=== PATIENT | male | born 1945 | race Caucasian/White ===

== ENCOUNTER 2021-01-16 16:56 | Outpatient (CLI) | payer MEDICARE, OTHER | END 2021-01-16 16:57 | disposition home or self-care (01) | LOC: COV 16:56 | PROVIDERS: ATTEND Dermatology MOHS-Micrographic Surgery | DX: Z01.812 Encounter for preprocedural laboratory examination (principal); Z20.822 Contact with and (suspected) exposure to COVID-19 ==

== ENCOUNTER 2024-05-31 12:18 | Inpatient (IN) ==
--- NOTE | 2024-05-31 12:27 | ED Physician Documentation ---
PD HPI FOCAL NEURO Stated complaint Stated Complaint: CODE STROKE Chief complaint Chief Complaint: Neuro Additional information Additional information: 79-year-old gentleman with history of hypertension. No history of heart problems or stroke presents with left-sided weakness starting overnight. He thinks it probably was first noted about 3 AM when he went to the bathroom. He is having difficulty walking due to left leg weakness. He is not on any anticoagulants. He denies headache or pain. Meds/Allgy Home Medications Ambulatory Orders Medication Instructions Recorded Confirmed dextroamphetamine-amphetamine 10 10 mg PO BID 11/04/12 04/14/24 mg tablet (Adderall) dextroamphetamine-amphetamine ER 30 mg PO BID PRN ADHD 11/04/12 04/14/24 25 mg 24hr capsule,extend release (Adderall XR) ascorbate calcium (vitamin C) 500 500 mg PO DAILY 11/05/12 04/14/24 mg tablet multivitamin 1 ea PO DAILY 11/05/12 04/14/24 psyllium husk (with sugar) 3.4 1 ea PO DAILY PRN constipation 11/05/12 04/14/24 gram oral powder packet (Metamucil (with sugar)) amlodipine 5 mg tablet (Norvasc) 5 mg PO DAILY 04/14/24 04/15/24 furosemide 20 mg tablet (Lasix) 20 mg PO DAILY 04/14/24 04/14/24 salome root extract 15 mg chewable mg PO DAILY 04/14/24 tablet (Advanced Herbals Salome) metoprolol succinate 25 mg capsule 25 mg PO HS 04/14/24 04/14/24 sprinkle, ext. release 24 hr Allergies Allergies Allergy/AdvReac Type Severity Reaction Status Date / Time penicillin G Allergy Severe Hives Verified 04/14/24 13:15 [facility] Medical History Medical History (Updated 05/31/24 @ 13:15 by Bonifacio Pedraza MD) HTN (hypertension) Basal cell carcinoma (BCC) in situ of skin Prostate CA Social History Social History (Updated 04/14/24 @ 13:17 by Eileen Velez RN) Smoking Status: Never smoker Second hand tobacco smoke exposure: No Do you dip or chew tobacco?: No Do you vape?: No Living arrangement: At home Marital Status: Living Condition: With spouse/s.o. Support Person: Yes Relationship: Spouse Physical Activity: Walking Level: Independent Do you feel safe in your home environment?: Yes Suffered physical, verbal, emotional, or financial abuse?: No History of Abuse: No Frequency: Daily Number of Amount/day: 1 Substance Use: denies use Exam Constitutional normal general appearance and no apparent distress Eyes PERRL and EOMs intact bilaterally Cardiovascular normal heart rate noted and regular rhythm noted Gastrointestinal abdomen normal to inspection, abdomen soft to palpation and nontender to palpation Neurology GCS 15 Results Vitals Vitals: Vital Signs - 24 hr 05/31/24 12:25 Temperature 36.9 C Temperature Source Temporal Artery Scan Pulse Rate 73 Respiratory Rate 18 Blood Pressure 123/81 O2 Saturation 94 O2 Source Room air Pain Intensity 0 Oxygen O2 Source Room air Labs Labs: Laboratory Tests 05/31/24 12:30 WBC 5.3 RBC 4.63 L Hgb 13.9 L Hct 42.6 MCV 92.0 MCH 30.0 MCHC 32.6 RDW 13.3 Plt Count 157 MPV 11.1 Neut # (Auto) 3.7 Lymph # (Auto) 0.7 L [place] # (Auto) 0.8 Eos # (Auto) 0.0 Baso # (Auto) 0.0 Absolute Nucleated RBC 0.00 Nucleated RBC % 0.0 PT 13.4 H INR 1.2 Sodium 135 Potassium 4.1 Chloride 102 Carbon Dioxide 27 Anion Gap 6.0 BUN 16 Creatinine 0.9 Estimated GFR (MDRD) 81 L Glucose 112 H Calcium 9.0 Total Bilirubin 0.4 AST 15 ALT 14 Alkaline Phosphatase 58 Total Protein 6.5 Albumin 3.9 Globulin 2.6 Albumin/Globulin Ratio 1.5 Lipase 24 Rads (name of study) CT head of the head and CT angiography of the head were negative with the exception of significant atherosclerotic disease of the left MCA. Also a 3.: Relevant Findings:: Final report received and EMP independent interpretation of test Interpretation: CT head of the head and CT angiography of the head were negative with the exception of significant atherosclerotic disease of the left MCA. Also a 3.2 cm left thyroid nodule. PD Medical Decision Making ED course ED course: 79-year-old gentleman presents with an acute stroke syndrome with left-sided symptomatology. CT imaging of the brain was negative except for a thyroid nodule. MRI pending on admission. After CT I ordered aspirin and Plavix and presented the case to our hospitalist service for admission at 1:15 PM. The patient and family are counseled as to the diagnosis and need for admission. This document was made in part using voice recognition software, while efforts are made to proofread this document, sound alike an grammatical errors may occur. Discharge Plan Discharge Patient Disposition: ED Place in Observation Condition: Stable Clinical Impression: Thyroid nodule Cerebrovascular accident (CVA) Qualifiers: CVA mechanism: unspecified Qualified Code(s): I63.9 - Cerebral infarction, unspecified Prescriptions: No Action dextroamphetamine-amphetamine [Adderall] 10 MG tablet 10 mg PO BID dextroamphetamine-amphetamine [Adderall XR] 25 MG capsule,extended release 24hr 30 mg PO BID PRN (Reason: ADHD) ascorbate calcium (vitamin C) 500 MG tablet 500 mg PO DAILY multivitamin 1 EACH capsule 1 ea PO DAILY Metamucil (with sugar) 1 EACH powder in packet 1 ea PO DAILY PRN (Reason: constipation) furosemide [Lasix] 20 mg tablet 20 mg PO DAILY metoprolol succinate 25 mg capsule,sprinkle,ER 24hr 25 mg PO HS amlodipine [Norvasc] 5 mg tablet 5 mg PO DAILY Advanced Herbals Salome 15 mg tablet,chewable PO DAILY Print Language: Upper Sorbian Stand Alone Forms: PCP List NIHSS Level of Consciousness Level of consciousness: (0) Alert, Keenly responsive LOC Questions: (0) Answers both Q's correct LOC Commands: (0) Performs both correctly Gaze Best Gaze: (0) Normal Visual Visual: (0) No loss Facial Palsy Facial Palsy: (0) Normal, symmetrical movement Motor Arms (both separate) Motor Arm (right): (0) No drift Motor Arm (left): (1) Drift Motor Legs (both separate) Motor Leg (right): (0) No drift Motor Leg (left): (1) Drift Limb Ataxia Limb Ataxia: (0) Absent Sensory Sensory: (1) Dsiw-yj-kqrcfuzt loss Best Language Best Language: (0) No aphasia Dysarthria Dysarthria: (0) Normal Extinction and Inattention (formally neg Extinction and inattention: (0) No abnormality Total Score/Results Total Score/Result: 3
[2024-05-31 12:35] LABS: BASOPHILS % (AUTO) 0.8 %; EOSINOPHILS % (AUTO) 0.6 %; HCT - HEMATOCRIT 42.6 % (42.0-52.0); HGB - HEMOGLOBIN 13.9 g/dL (14.0-18.0); LYMPHOCYTES # (AUTO) 0.7 10^3/uL (1.5-3.5); MEAN CORPUSCULAR HGB CONC 32.6 g/dL (32.0-36.0); MEAN PLATELET VOLUME 11.1 fL (7.4-11.4); MONOCYTES # (AUTO) 0.8 10^3/uL (0.0-1.0); MONOCYTES % (AUTO) 15.6 %; NEUTROPHILS # (AUTO) 3.7 10^3/uL (1.5-6.6); NEUTROPHILS % (AUTO) 69.6 %; PLT - PLATELET COUNT 157 10^3/uL (130-450); RED BLOOD COUNT 4.63 10^6/uL (4.70-6.10); RED CELL DISTRIBUTION WIDTH 13.3 % (12.0-15.0); WHITE BLOOD COUNT 5.3 x10^3/uL (4.8-10.8)
[2024-05-31 12:42] LABS: INR 1.2 (0.8-1.2); PT - PROTHROMBIN TIME 13.4 secs (9.9-12.6)
--- NOTE | 2024-05-31 12:47 | CT Report ---
PROCEDURE: CT Head W/O Stroke Protocol INDICATIONS: Neuro deficit, acute, stroke suspected TECHNIQUE: Noncontrast 4.5 mm thick angled axial sections acquired from the foramen magnum to the vertex, with c oronal reformats. For radiation dose reduction, the following was used: automated exposure control, adjustment of mA and/or kV according to patient size. COMPARISON: None. FINDINGS: Image quality: Excellent. CSF spaces: Basal cisterns are patent. No extra-axial fluid collections. Ventricles are normal in size and shape. Brain: No midline shift. No intracranial masses or hemorrhage. Beauchamp-white matter interface is norm al. Significant atherosclerotic disease of the left MCA. Skull and face: Calvarium and visualized facial bones are intact, without suspicious lesions. Sinuses: Very mild mucosal thickening of the paranasal sinuses. IMPRESSION: No acute intracranial pathology. Specifically, no hemorrhagic infarct. Above discussed with Bonifacio Pedraza MD at 12:45 PM on 05/31/2024. This study fulfills neurological imaging criteria for inclusion or exclusion of acute stroke therapie s based on available published neurological imaging guidelines. Reviewed by: Raji Ware MD on 05/31/2024 12:46 PM PST Approved by: Raji Ware MD on 05/31/2024 12:46 PM PST Station ID: [id number]
[2024-05-31] MEDS ORDERED: iohexoL-300 100 ML VIAL ONE (12:54)
[2024-05-31 12:59] LABS: ALBUMIN 3.9 g/dL (3.2-5.5); ALBUMIN/GLOBULIN RATIO 1.5 (1.0-2.2); BILIRUBIN,TOTAL 0.4 mg/dL (0.2-1.0); CREATININE 0.9 mg/dL (0.6-1.3); POTASSIUM 4.1 mmol/L (3.5-4.5); TOTAL PROTEIN 6.5 g/dL (6.4-8.9)
--- NOTE | 2024-05-31 13:03 | CT Report ---
PROCEDURE: CT Angio Head/Neck INDICATIONS: cva sx TECHNIQUE: After the administration of intravenous contrast, 1 mm thick sections acquired from the aortic arch t hrough the Wheeler of Rosen. 3-dimensional fxwmqwb-lratzntxi-fvvbatyxji (MIP) and/or volume renderin g reformats were acquired of the central intracranial vasculature and neck separately. For radiation dose reduction, the following was used: automated exposure control, adjustment of mA and/or kV acco rding to patient size. CONTRAST: omni 300 80ml COMPARISON: Same day head CT. FINDINGS: Image quality: Diagnostic. HEAD CT: No acute intracranial process. No HEAD CT ANGIOGRAPHY: Anterior circulation: Intracranial internal carotid arteries are normal in size and flow. The flow within the paired anterior cerebral arteries is normal and symmetric. The flow within the middle cer ebral arteries is normal and symmetric. The anterior communicating artery is seen. No aneurysms are seen. Moderate atherosclerotic calcifications of the left MCA. Posterior circulation: Visualized portions of the vertebral arteries demonstrate normal caliber, and join to form a normal appearing basilar artery. Flow within the posterior cerebral arteries is norm al and symmetric. No aneurysms are seen. NECK CT ANGIOGRAPHY: Carotid system: The great vessels demonstrate a conventional anatomy as they arise from the aortic a rch. The origins of the common carotid arteries appear patent. The common carotid arteries demonstr ate normal caliber and courses. The bifurcation regions are both widely patent. The internal caroti d arteries demonstrate normal calibers and courses. Posterior circulation: The origins of the vertebral arteries both appear widely patent. The more gayle perior extracranial portions of both vertebral arteries also demonstrate normal courses and calibers. Termination of the right vertebral artery as the PICA. Soft tissues: The left thyroid is enlarged, with a 3.2 cm thyroid nodule. Bones: No suspicious bony lesions. Visualized cervical spine appears normally aligned. IMPRESSION: No significant intracranial arterial abnormality is seen. No significant abnormality is seen within the arteries of the neck. 3.2 cm left thyroid nodule. Dedicated nonemergent thyroid ultrasound is recommended per consensus gu idelines, if not performed in the past. The estimate of stenosis included in the report of the imaging study was calculated using the NASCET method Reviewed by: Raji Ware MD on 05/31/2024 1:01 PM PST Approved by: Raji Ware MD on 05/31/2024 1:01 PM PST Station ID: [id number]
[2024-05-31] MEDS: CLOPIDOGREL 75 MG TABLET PO STA (13:15)
[2024-05-31] MEDS: ASPIRIN 325 MG TABLET PO STA (13:15)
--- NOTE | 2024-05-31 13:15 | HISTORY & PHYSICAL EXAMINATION ---
Chief Complaint Chief Complaint Chief Complaint: weakness History of Present Illness Admitted From Admitted From:: Home History Obtained From History obtained from: Patient Exam Limitations: none History of Present Illness HPI Comment/Other: 79-year-old male H significant for hypertension who presented to the ED after experiencing left-sided weakness and numbness/tingling starting early this morning. In the ER, CT head, CTA head and neck was performed which showed A 3.2 cm left thyroid nodule, But no significant intracranial abnormality or any abnormality within the arteries of the neck. He was loaded with aspirin, Plavix and hospitalist was contacted for observation for suspected stroke Meds/Allgy Home Medications Ambulatory Orders Medication Instructions Recorded Confirmed dextroamphetamine-amphetamine 10 10 mg PO BID 11/04/12 04/14/24 mg tablet (Adderall) dextroamphetamine-amphetamine ER 30 mg PO BID PRN ADHD 11/04/12 04/14/24 25 mg 24hr capsule,extend release (Adderall XR) ascorbate calcium (vitamin C) 500 500 mg PO DAILY 11/05/12 04/14/24 mg tablet multivitamin 1 ea PO DAILY 11/05/12 04/14/24 psyllium husk (with sugar) 3.4 1 ea PO DAILY PRN constipation 11/05/12 04/14/24 gram oral powder packet (Metamucil (with sugar)) amlodipine 5 mg tablet (Norvasc) 5 mg PO DAILY 04/14/24 04/15/24 furosemide 20 mg tablet (Lasix) 20 mg PO DAILY 04/14/24 04/14/24 salome root extract 15 mg chewable mg PO DAILY 04/14/24 tablet (Advanced Herbals Salome) metoprolol succinate 25 mg capsule 25 mg PO HS 04/14/24 04/14/24 sprinkle, ext. release 24 hr Allergies Allergies Allergy/AdvReac Type Severity Reaction Status Date / Time penicillin G Allergy Severe Hives Verified 04/14/24 13:15 [facility] Medical History Medical History (Updated 05/31/24 @ 13:15 by Bonifacio Pedraza MD) HTN (hypertension) Basal cell carcinoma (BCC) in situ of skin Prostate CA Social History Social History (Updated 04/14/24 @ 13:17 by Eileen Velez RN) Smoking Status: Never smoker Second hand tobacco smoke exposure: No Do you dip or chew tobacco?: No Do you vape?: No Living arrangement: At home Marital Status: Living Condition: With spouse/s.o. Support Person: Yes Relationship: Spouse Physical Activity: Walking Level: Independent Do you feel safe in your home environment?: Yes Suffered physical, verbal, emotional, or financial abuse?: No History of Abuse: No Frequency: Daily Number of Amount/day: 1 Substance Use: denies use Review of Systems Status of ROS: 10 or more systems reviewed and unremarkable except as noted in history and below Constitutional Denies: Fever or Chills Cardiovascular Denies: Irregular heart rate, chest pain, palpitations or shortness of breath with exertion Respiratory Denies: Shortness of breath or Cough Gastrointestinal Denies: Abdominal pain Genitourinary Reports: Incontinence Neurological Reports: Focal weakness, Weakness in extremities and Numbness in extremities Exam Constitutional normal general appearance and no apparent distress HENMT normocephalic and head/scalp atraumatic Eyes PERRL Neck/C-Spine visual inspection normal Lymph no lymphadenopathy noted Chest inspection of chest normal Respiratory breath sounds equal bilaterally and clear to auscultation bilaterally Cardiovascular normal heart rate noted Gastrointestinal abdomen normal to inspection Genitourinary bladder normal to palpation Extremities normal to inspection Neurology speech normal and GCS 15 Left computer hardware engineer noticeably weaker. Psychiatry oriented x3 Skin skin color normal Conclusion/Plan Problem List (1) Cerebrovascular accident (CVA): Plan: Received loading doses of aspirin and Plavix in the ER Continue Plavix for 3 weeks Aspirin 81 mg daily Lipitor 40 mg p.o. daily Echo, MRI brain PT/OT eval Qualifiers: CVA mechanism: unspecified Qualified Code(s): I63.9 - Cerebral infarction, unspecified (2) HTN (hypertension): Plan: Continue home medication regimen after pharmacy review Plan Placed in observation Full code His is his surrogate decision-maker Lab Results Lab results reviewed: Yes 05/31/24 12:30 05/31/24 12:30 Core Measures Anticipated LOS I expect patient to be DC'd or transferred within 96 hours.: Yes DVT/VTE - Prophylaxis VTE/DVT Prophylaxis med ordered at admit?: Yes Stroke - Rehab Assessment Rehab services assessment to be ordered?: Yes
[2024-05-31] MEDS: iohexoL-300 100 ML VIAL IVP ONE (13:27)
[2024-05-31] MEDS ORDERED: SODIUM CHLORIDE FLUSH 0.9% 10 ML SYRINGE IVP PRN (14:58)
[2024-05-31] MEDS ORDERED: ONDANSETRON 4 MG/2 ML VIAL IVP PRN (14:58)
[2024-05-31] MEDS ORDERED: ONDANSETRON ODT 4 MG TABLET TL PRN (14:58)
--- NOTE | 2024-05-31 16:23 | PHARMACY PROGRESS NOTE ---
Best Possible Medication History Admit Date and Time: 05/31/24 [id number] Home Medications Medication Instructions Recorded Confirmed Type furosemide 20 mg tablet (Lasix) 20 mg PO DAILY 04/14/24 05/31/24 History amlodipine 5 mg-benazepril 10 mg 1 cap PO DAILY 05/31/24 05/31/24 History capsule dextroamphetamine-amphetamine ER 30 mg PO BID PRN ADHD 05/31/24 05/31/24 History 30 mg 24hr capsule,extend release metoprolol succinate 25 mg 25 mg PO HS 05/31/24 05/31/24 History tablet,extended release 24 hr Processed by: Pharmacy (Medication Reconciliation completed by Door LinerWili) Medications reviewed in ED?: No Medication History completed: Yes Patient Interview: Completed Secondary Source(s): Insurance records [facility] Statement: As the person ultimately responsible for medication therapy, providers are able to order a medication from an existing home medication list in [facility] via the "Reconcile Routine" prior to Confirmation of that medication by supportive employment case manager. Such practice is discouraged except when the physician, in their clinical judgment, deems that a medical need exists for a medication without regard to previous use.
[2024-05-31] MEDS: ACETAMINOPHEN 325 MG TABLET PO PRN (16:36)
[2024-05-31] MEDS: SODIUM CHLORIDE FLUSH 0.9% 10 ML SYRINGE IVP SCH (16:37)
--- NOTE | 2024-05-31 18:42 | MRI Report ---
PROCEDURE: MRI Brain WO INDICATIONS: cva TECHNIQUE: Noncontrast axial T1 spin echo, axial T2 fast spin echo, sagittal and axial FLAIR, coronal T2 fast sp in echo, axial gradient echo, axial diffusion and ADC through the brain. COMPARISON: Same-day CT FINDINGS: Image quality: Diagnostic CSF spaces: Basal cisterns are patent. Lateral ventricles are symmetric. Volume: Periventricular white matter signal abnormality is commonly seen with chronic microangiopathy . Volume loss is present. These findings are mild to moderate. Brain: On diffusion images, no acute infarct is identified. No confluent region of parenchymal edema. No intracranial hematoma. Craniofacial structures: Left replacement. Scattered paranasal sinus mucosal thickening and mild fluid. IMPRESSION: No acute infarct. No intracranial hematoma. Reviewed by: Abhilash Albarado MD on 05/31/2024 6:41 PM PST Approved by: Abhilash Albarado MD on 05/31/2024 6:41 PM PST Station ID: [id number]
[2024-05-31] MEDS: ATORVASTATIN 40 MG TABLET PO SCH (20:34)
[2024-06-01 06:06] LABS: BASOPHILS % (AUTO) 0.7 %; EOSINOPHILS % (AUTO) 0.4 %; HGB - HEMOGLOBIN 13.4 g/dL (14.0-18.0); LYMPHOCYTES # (AUTO) 0.8 10^3/uL (1.5-3.5); LYMPHOCYTES % (AUTO) 14.2 %; MEAN CORPUSCULAR HEMOGLOBIN 29.7 pg (27.0-31.0); MEAN CORPUSCULAR HGB CONC 32.7 g/dL (32.0-36.0); MEAN CORPUSCULAR VOLUME 90.9 fL (80.0-94.0); MEAN PLATELET VOLUME 11.4 fL (7.4-11.4); MONOCYTES # (AUTO) 0.9 10^3/uL (0.0-1.0); NEUTROPHILS # (AUTO) 3.8 10^3/uL (1.5-6.6); NEUTROPHILS % (AUTO) 68.3 %; PLT - PLATELET COUNT 163 10^3/uL (130-450); RED BLOOD COUNT 4.51 10^6/uL (4.70-6.10); RED CELL DISTRIBUTION WIDTH 13.2 % (12.0-15.0); WHITE BLOOD COUNT 5.5 x10^3/uL (4.8-10.8)
[2024-06-01 06:22] LABS: CALCIUM 8.3 mg/dL (8.5-10.3); CREATININE 0.8 mg/dL (0.6-1.3); POTASSIUM 3.6 mmol/L (3.5-4.5)
[2024-06-01] MEDS: ENOXAPARIN 40 MG/0.4 ML SYRINGE SUBQ SCH (09:05)
[2024-06-01] MEDS: CLOPIDOGREL 75 MG TABLET PO SCH (09:06)
[2024-06-01] MEDS: ASPIRIN EC 81 MG TABLET PO SCH (09:06)
[2024-06-01] MEDS: SENNA 8.6 MG TABLET PO SCH (12:05)
--- NOTE | 2024-06-01 13:33 | OT Plan of Care ---
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 In the ER, CT head, CTA head and neck was performed which showed A 3.2 cm left thyroid nodule. MRI negative. Cleared for therapy evaluation. Met supine in bed, A&Ox4, follows all commands appropriately. Reporting 5/10 VALERA, denied all other sequela. Vision appears WFL. Presenting with L sided weakness (Grossly 3-/5 MMT), decreased coordination, and decreased sensation impairing functional proprioception needed for ADL/Mobility. Performed supine to sit CG, sit to stand, and latera/forward/backwards steps MIN-MOD A using RW- Cues for safety and RW management. Overall presents with decreased endurance, activity tolerance and ADL status. Will benefit from cont OT services during acute stay. Rec d/c to SNF. Goals - Activities of Daily Living Improve Upper Extremity Independent Dressing to: Improve Lower Extremity Independent Dressing to: Improve Grooming/Hygiene to: Independent Improve Bathing to: Independent Improve Toileting to: Independent Plan Treatment Frequency 1x/day -Discharge Recommendations Discharge Location Long Term Facility Transport Needs at Discharge Wheelchair van
--- NOTE | 2024-06-01 13:37 | PT Plan of Care ---
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 Imaging negative for acute infarct however L sided weakness, numbness, and tingling remain present at time of PT eval. Pt is fully indep at baseline, lives with in 2SH but set up for 1st level living. Upon PT eval, pt is mildly hypertensive with BP 147/90, HR 92 at rest. Able to move LUE/LLE however limited, nearly absent L ankle DF, significant L sided numbness and tingling and requires compensatory motion to mobilize L leg during transfers. Able to stand with AD and minAx2. Limited lateral stepping with poor L toe clearance, able to step fwd/ backward x1 step with poor proprioception, impaired motor control and significant weakness. Overall pt is a high fall risk given about impairments and limited L hand block setter gypsum limiting AD use. Pt will benefit from skilled PT to improve safety and mobility while in acute setting. When medically clear, PT rec dc to SNF as pt is far below indep baseline. Goals Improve bed mobility to: Independent Improve supine to sit to: Independent Improve sit to stand to: Contact Guard Improve pivot transfer ability Contact Guard to: Improve sit to supine to: Modified Independent Improve gait ability to: CGA Assistive Device Used: Front Wheeled Walker,Hot Shot Walker Improve Sitting Balance to: Good Improve Standing Balance to: Good PT Plan of Care Frequency 1-2x/day Duration Until goals are met Discharge Recommendations Discharge Location Group Home Facility Other TBD Transport Needs at Discharge Wheelchair van
--- NOTE | 2024-06-01 14:35 | PROVIDER PROGRESS NOTE ---
Subjective Prog Note Date Prog Note Date: 06/01/24 Subjective Pt reports feeling: Improved Subjective: Some improvement in function Current Medications Current Medications Current Medications: Current Medications Generic Name Dose Route Start Last Admin Trade Name Freq PRN Reason Stop Dose Admin Acetaminophen 650 mg 05/31/24 14:58 06/01/24 04:45 Acetaminophen 325 Mg Tablet PO 650 mg Q4HR PRN Administration Pain 1 to 4, or Fever Aspirin 81 mg 06/01/24 09:00 06/01/24 09:06 Aspirin Ec 81 Mg Tablet PO 81 mg DAILY MARY Administration Atorvastatin Calcium 40 mg 05/31/24 21:00 05/31/24 20:34 Atorvastatin 40 Mg Tablet PO 40 mg QPM MARY Administration Clopidogrel Bisulfate 75 mg 06/01/24 09:00 06/01/24 09:06 Clopidogrel 75 Mg Tablet PO 75 mg DAILY MARY Administration Enoxaparin Sodium 40 mg 06/01/24 09:00 06/01/24 09:05 Enoxaparin 40 Mg/0.4 Ml Syringe SUBQ 40 mg DAILY MARY Administration Ondansetron HCl 4 mg 05/31/24 14:58 Ondansetron Odt 4 Mg Tablet TL Q6HR PRN Nausea / Vomiting Ondansetron HCl 4 mg 05/31/24 14:58 Ondansetron 4 Mg/2 Ml Vial IVP Q6HR PRN Nausea / Vomiting Senna 8.6 - 17.2 mg 06/01/24 11:00 06/01/24 12:05 Senna 8.6 Mg Tablet PO 17.2 mg DAILY MARY Administration Sodium Chloride 10 ml 05/31/24 14:58 Sodium Chloride Flush 0.9% 10 Ml Syringe IVP PRN PRN NEEDED PER PROVIDER ORDERS Sodium Chloride 10 ml 05/31/24 17:00 06/01/24 09:06 Sodium Chloride Flush 0.9% 10 Ml Syringe IVP 10 ml 0100,0900,1700 MARY Administration Objective Vital Signs/Intake & Output Reviewed Vital Signs: Yes Vital Signs: Vital Signs x48h Temp Pulse Pulse Resp BP BP Pulse Ox 06/01/24 13:25 92 147/90 H 06/01/24 13:19 37.1 C 92 18 130/82 92 06/01/24 10:10 92 147/90 H 06/01/24 07:28 37.1 C 81 16 144/79 H 94 Intake & Output: Intake & Output 05/29/24 05/30/24 05/31/24 06/01/24 23:59 23:59 23:59 23:59 Intake Total 250 / 250 980 / 980 Output Total 750 / 750 Balance 250 / 250 230 / 230 Weight (kg) 108 kg Objective General Appearance: positive No acute distress and Alert Eyes Bilateral: positive Normal inspection and PERRL ENT: positive No signs of dehydration Neck: positive Nml inspection and No JVD Respiratory: positive Breath sounds nml Cardiovascular: positive Regular rate & rhythm Abdomen: positive Non-tender Skin: positive Color nml Extremities: positive Non-tender Neurologic/Psychiatric: positive Oriented x3; negative Motor nml (Weakness on left), Sensation nml (Impaired sensation on left) or Facial droop (Slight left- sided facial droop) Lab Results 06/01/24 05:25 06/01/24 05:25 Other Labs: Lab Results x24hrs 06/01/24 Range/Units 05:25 WBC 5.5 (4.8-10.8) x10^3/uL RBC 4.51 L (4.70-6.10) 10^6/uL Hgb 13.4 L (14.0-18.0) g/dL Hct 41.0 L (42.0-52.0) % MCV 90.9 (80.0-94.0) fL MCH 29.7 (27.0-31.0) pg MCHC 32.7 (32.0-36.0) g/dL RDW 13.2 (12.0-15.0) % Plt Count 163 (130-450) 10^3/uL MPV 11.4 (7.4-11.4) fL Neut # (Auto) 3.8 (1.5-6.6) 10^3/uL Lymph # (Auto) 0.8 L (1.5-3.5) 10^3/uL [place] # (Auto) 0.9 (0.0-1.0) 10^3/uL Eos # (Auto) 0.0 (0.0-0.7) 10^3/uL Baso # (Auto) 0.0 (0.0-0.1) 10^3/uL Absolute Nucleated RBC 0.00 x10^3/uL Nucleated RBC % 0.0 /100WBC Sodium 132 L (135-145) mmol/L Potassium 3.6 (3.5-4.5) mmol/L Chloride 101 (101-111) mmol/L Carbon Dioxide 23 (21-32) mmol/L Anion Gap 8.0 (6-13) BUN 13 (6-20) mg/dL Creatinine 0.8 (0.6-1.3) mg/dL Estimated GFR (MDRD) 93 (>89) Glucose 102 (74-104) mg/dL Calcium 8.3 L (8.5-10.3) mg/dL Assessment/Plan Problem List (1) Cerebrovascular accident (CVA): Impression: Received loading doses of aspirin and Plavix in the ER Continue Plavix for 3 weeks Aspirin 81 mg daily Lipitor 40 mg p.o. daily Echo, MRI brain PT/OT eval 06/01/2024: PT/OT recommend facility placement. Continue current regimen. MRI brain without acute infarct. Echocardiogram Normal Qualifiers: CVA mechanism: unspecified Qualified Code(s): I63.9 - Cerebral infarction, unspecified (2) HTN (hypertension): Impression: Outside of 24-hour window, will restart home regimen
[2024-06-01] MEDS: METOPROLOL SUCCINATE 25 MG TABLET PO SCH (20:59)
[2024-06-02 05:47] LABS: BASOPHILS % (AUTO) 0.8 %; EOSINOPHILS % (AUTO) 0.6 %; HCT - HEMATOCRIT 42.9 % (42.0-52.0); HGB - HEMOGLOBIN 14.2 g/dL (14.0-18.0); LYMPHOCYTES # (AUTO) 1.2 10^3/uL (1.5-3.5); LYMPHOCYTES % (AUTO) 32.9 %; MEAN CORPUSCULAR HEMOGLOBIN 29.6 pg (27.0-31.0); MEAN CORPUSCULAR HGB CONC 33.1 g/dL (32.0-36.0); MEAN CORPUSCULAR VOLUME 89.4 fL (80.0-94.0); MEAN PLATELET VOLUME 11.4 fL (7.4-11.4); MONOCYTES # (AUTO) 0.7 10^3/uL (0.0-1.0); MONOCYTES % (AUTO) 19.9 %; NEUTROPHILS # (AUTO) 1.7 10^3/uL (1.5-6.6); NEUTROPHILS % (AUTO) 45.5 %; PLT - PLATELET COUNT 175 10^3/uL (130-450); RED CELL DISTRIBUTION WIDTH 13.1 % (12.0-15.0); WHITE BLOOD COUNT 3.6 x10^3/uL (4.8-10.8)
[2024-06-02 06:03] LABS: CALCIUM 8.6 mg/dL (8.5-10.3); CREATININE 0.8 mg/dL (0.6-1.3); POTASSIUM 3.4 mmol/L (3.5-4.5)
[2024-06-02] MEDS: polyethylene glycoL 3350 17 GM PACKET PO SCH (08:37)
[2024-06-02] MEDS: amLODIPine 5 MG TABLET PO SCH (08:38)
[2024-06-02] MEDS: DOCUSATE SODIUM 250 MG CAPSULE PO SCH (08:38)
[2024-06-02] MEDS: lisinopriL 5 MG TABLET PO SCH (08:38)
[2024-06-02] MEDS: FUROSEMIDE 20 MG TABLET PO SCH (08:38)
--- NOTE | 2024-06-02 09:51 | OT Plan of Care ---
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 In the ER, CT head, CTA head and neck was performed which showed A 3.2 cm left thyroid nodule. MRI negative. Cleared for therapy evaluation. Met supine in bed, A&Ox4, follows all commands appropriately. Reporting 5/10 VALERA, denied all other sequela. Vision appears WFL. Presenting with L sided weakness (Grossly 3-/5 MMT), decreased coordination, and decreased sensation impairing functional proprioception needed for ADL/Mobility. Performed supine to sit CG, sit to stand, and latera/forward/backwards steps MIN-MOD A using RW- Cues for safety and RW management. Overall presents with decreased endurance, activity tolerance and ADL status. Will benefit from cont OT services during acute stay. Rec d/c to inpatient rehab as pt is highly motivated and was INDP prior to CVA. Pt with ability to participate in 3+ hrs therapy a day to address above deficits and return to functional baseline. Goals - Activities of Daily Living Improve Upper Extremity Independent Dressing to: Improve Lower Extremity Independent Dressing to: Improve Grooming/Hygiene to: Independent Improve Bathing to: Independent Improve Toileting to: Independent Plan Treatment Frequency 1x/day -Discharge Recommendations Discharge Location [facility] Transport Needs at Discharge Wheelchair van
--- NOTE | 2024-06-02 09:58 | PT Plan of Care ---
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 Initially referred to PT d/t L sided weakness/n/t and suspected stroke. Pt is fully indep at baseline, lives in 2SH with but is set up for 1st level living. Upon re-eval, pt sitting at EOB, states L side seems improved compared to yesterday and has been doing self selected exercises for LUE this morning. Pt continues with LUE/LLE incoordination, weakness, and AROM loss. Notably reduced L ankle DF and glut weakness leading to gait impairments including reduced toe clearance and poor stability during stance. Overall pt is able to amb x30' w/ FWW, min to modAx1 and close chair follow. Pt demonstrates instability during turning d/t glut and trunk weakness, mild L lateral trunk lean during all functional mobility. Pt also continues with mild L sided facial droop and difficulty with motor control during speech. Given complexity of deficits and need for all 3 disciplines, PT is now rec dc to [facility] as pt is highly motivated, a good candidate for intensive therapy, has a high baseline mobility, and good prognosis to recover PLOF. Goals Improve bed mobility to: Independent Improve supine to sit to: Independent Improve sit to stand to: Contact Guard Improve pivot transfer ability Contact Guard to: Improve sit to supine to: Modified Independent Improve gait ability to: CGA Assistive Device Used: Front Wheeled Walker,Ornamental Metal Worker Walker Improve Sitting Balance to: Good Improve Standing Balance to: Good PT Plan of Care Frequency 1-2x/day Duration Until goals are met Discharge Recommendations Discharge Location [facility] Other TBD Transport Needs at Discharge Wheelchair van
[2024-06-02] MEDS: BISACODYL 10 MG SUPP PR ONE (13:07)
--- NOTE | 2024-06-02 16:32 | PROVIDER PROGRESS NOTE ---
Subjective Prog Note Date Prog Note Date: 06/02/24 Subjective Subjective: slow improvements. He relates to me a history of ADD in addition to HTN. Takes adderall 30mg daily at home. denies hs elevated BP with this. takes his BP at home. Had been on thyroid medication when he was a young child, but none since that time. Is looking forward to going to [facility], would like to go to [place], if possible. Current Medications Current Medications Current Medications: Current Medications Generic Name Dose Route Start Last Admin Trade Name Freq PRN Reason Stop Dose Admin Acetaminophen 650 mg 05/31/24 14:58 06/01/24 04:45 Acetaminophen 325 Mg Tablet PO 650 mg Q4HR PRN Administration Pain 1 to 4, or Fever Amlodipine Besylate 5 mg 06/02/24 09:00 06/02/24 08:38 Amlodipine 5 Mg Tablet PO 5 mg DAILY MARY Administration Aspirin 81 mg 06/01/24 09:00 06/02/24 08:38 Aspirin Ec 81 Mg Tablet PO 81 mg DAILY MARY Administration Atorvastatin Calcium 40 mg 05/31/24 21:00 06/01/24 20:59 Atorvastatin 40 Mg Tablet PO 40 mg QPM MARY Administration Clopidogrel Bisulfate 75 mg 06/01/24 09:00 06/02/24 08:38 Clopidogrel 75 Mg Tablet PO 75 mg DAILY MARY Administration Docusate Sodium 250 - 500 mg 06/02/24 09:00 06/02/24 08:38 Docusate Sodium 250 Mg Capsule PO 250 mg DAILY MARY Administration Enoxaparin Sodium 40 mg 06/01/24 09:00 06/02/24 08:37 Enoxaparin 40 Mg/0.4 Ml Syringe SUBQ 40 mg DAILY MARY Administration Furosemide 20 mg 06/02/24 09:00 06/02/24 08:38 Furosemide 20 Mg Tablet PO 20 mg DAILY MARY Administration Lisinopril 10 mg 06/02/24 09:00 06/02/24 08:38 Lisinopril 5 Mg Tablet PO 10 mg DAILY MARY Administration Metoprolol Succinate 25 mg 06/01/24 21:00 06/01/24 20:59 Metoprolol Succinate 25 Mg Tablet PO 25 mg HS MARY Administration Ondansetron HCl 4 mg 05/31/24 14:58 Ondansetron Odt 4 Mg Tablet TL Q6HR PRN Nausea / Vomiting Ondansetron HCl 4 mg 05/31/24 14:58 Ondansetron 4 Mg/2 Ml Vial IVP Q6HR PRN Nausea / Vomiting Polyethylene Glycol 17 gm 06/02/24 09:00 06/02/24 08:37 Polyethylene Glycol 3350 17 Gm Packet PO 17 gm DAILY MARY Administration Senna 8.6 - 17.2 mg 06/01/24 11:00 06/02/24 08:38 Senna 8.6 Mg Tablet PO 8.6 mg DAILY MARY Administration Sodium Chloride 10 ml 05/31/24 14:58 Sodium Chloride Flush 0.9% 10 Ml Syringe IVP PRN PRN NEEDED PER PROVIDER ORDERS Sodium Chloride 10 ml 05/31/24 17:00 06/02/24 08:38 Sodium Chloride Flush 0.9% 10 Ml Syringe IVP 10 ml 0100,0900,1700 MARY Administration Objective Vital Signs/Intake & Output Reviewed Vital Signs: Yes Vital Signs: Vital Signs x48h Temp Pulse Pulse Resp BP BP Pulse Ox 06/02/24 16:05 36.5 C 60 16 132/75 H 97 06/02/24 12:50 36.8 C 65 18 129/73 92 06/02/24 09:47 92 147/90 H Intake & Output: Intake & Output 05/30/24 05/31/24 06/01/24 06/02/24 23:59 23:59 23:59 23:59 Intake Total 250 / 250 1460 / 1460 920 / 920 Output Total 1700 / 1700 875 / 875 Balance 250 / 250 -240 / -240 45 / 45 Weight (kg) 108 kg Objective General Appearance: positive No acute distress and Alert Eyes Bilateral: positive Normal inspection and PERRL ENT: positive No signs of dehydration Neck: positive Nml inspection and No JVD Respiratory: positive Breath sounds nml Cardiovascular: positive Regular rate & rhythm Abdomen: positive Non-tender Skin: positive Color nml Extremities: positive Non-tender Neurologic/Psychiatric: positive Oriented x3; negative Motor nml (Weakness on left), Sensation nml (Impaired sensation on left) or Facial droop (Slight left- sided facial droop) Lab Results 06/02/24 05:22 06/02/24 05:22 Other Labs: Lab Results x24hrs 06/02/24 Range/Units 05:22 WBC 3.6 L (4.8-10.8) x10^3/uL RBC 4.80 (4.70-6.10) 10^6/uL Hgb 14.2 (14.0-18.0) g/dL Hct 42.9 (42.0-52.0) % MCV 89.4 (80.0-94.0) fL MCH 29.6 (27.0-31.0) pg MCHC 33.1 (32.0-36.0) g/dL RDW 13.1 (12.0-15.0) % Plt Count 175 (130-450) 10^3/uL MPV 11.4 (7.4-11.4) fL Neut # (Auto) 1.7 (1.5-6.6) 10^3/uL Lymph # (Auto) 1.2 L (1.5-3.5) 10^3/uL [place] # (Auto) 0.7 (0.0-1.0) 10^3/uL Eos # (Auto) 0.0 (0.0-0.7) 10^3/uL Baso # (Auto) 0.0 (0.0-0.1) 10^3/uL Absolute Nucleated RBC 0.00 x10^3/uL Nucleated RBC % 0.0 /100WBC Sodium 135 (135-145) mmol/L Potassium 3.4 L (3.5-4.5) mmol/L Chloride 103 (101-111) mmol/L Carbon Dioxide 24 (21-32) mmol/L Anion Gap 8.0 (6-13) BUN 12 (6-20) mg/dL Creatinine 0.8 (0.6-1.3) mg/dL Estimated GFR (MDRD) 93 (>89) Glucose 102 (74-104) mg/dL Calcium 8.6 (8.5-10.3) mg/dL Assessment/Plan Problem List (1) Cerebrovascular accident (CVA): Impression: Received loading doses of aspirin and Plavix in the ER Continue Plavix for 3 weeks Aspirin 81 mg daily Lipitor 40 mg p.o. daily MRI brain is negative. This is CVA is not evident on the MRI. Echocardiogram with negative bubble study, EF 60-65%, right sided funtion is normal, no evidence of valvular dysfunction PT/OT eval recommend IRF l Qualifiers: CVA mechanism: unspecified Qualified Code(s): I63.9 - Cerebral infarction, unspecified (2) HTN (hypertension): Impression: Outside of 24-hour window for permissive hypertension, his home meds have been restarted: metoprolol and lisinopril I have spent 26 minutes in the care of this patient today. This includes time [id number], review and ordering of diagnostic imaging and laboratory studies.
[2024-06-03 05:49] LABS: BASOPHILS # (AUTO) 0.1 10^3/uL (0.0-0.1); BASOPHILS % (AUTO) 1.4 %; EOSINOPHILS # (AUTO) 0.1 10^3/uL (0.0-0.7); EOSINOPHILS % (AUTO) 2.2 %; HCT - HEMATOCRIT 42.2 % (42.0-52.0); HGB - HEMOGLOBIN 14.1 g/dL (14.0-18.0); LYMPHOCYTES # (AUTO) 1.5 10^3/uL (1.5-3.5); LYMPHOCYTES % (AUTO) 41.2 %; MEAN CORPUSCULAR HEMOGLOBIN 29.7 pg (27.0-31.0); MEAN CORPUSCULAR HGB CONC 33.4 g/dL (32.0-36.0); MEAN CORPUSCULAR VOLUME 88.8 fL (80.0-94.0); MONOCYTES # (AUTO) 0.5 10^3/uL (0.0-1.0); MONOCYTES % (AUTO) 14.9 %; NEUTROPHILS # (AUTO) 1.5 10^3/uL (1.5-6.6); PLT - PLATELET COUNT 174 10^3/uL (130-450); RED BLOOD COUNT 4.75 10^6/uL (4.70-6.10); RED CELL DISTRIBUTION WIDTH 13.1 % (12.0-15.0); WHITE BLOOD COUNT 3.6 x10^3/uL (4.8-10.8)
[2024-06-03 05:58] LABS: CALCIUM 8.4 mg/dL (8.5-10.3); CREATININE 0.8 mg/dL (0.6-1.3); POTASSIUM 3.5 mmol/L (3.5-4.5)
[2024-06-03] MEDS: LOSARTAN 50 MG TABLET PO SCH (12:21)
--- NOTE | 2024-06-03 18:35 | PROVIDER PROGRESS NOTE ---
Subjective Prog Note Date Prog Note Date: 06/03/24 Subjective Subjective: problems with bowels ,feels constipated, but nursing reports loose bowel movements. Current Medications Current Medications Current Medications: Current Medications Generic Name Dose Route Start Last Admin Trade Name Freq PRN Reason Stop Dose Admin Acetaminophen 650 mg 05/31/24 14:58 06/01/24 04:45 Acetaminophen 325 Mg Tablet PO 650 mg Q4HR PRN Administration Pain 1 to 4, or Fever Amlodipine Besylate 5 mg 06/02/24 09:00 06/03/24 08:40 Amlodipine 5 Mg Tablet PO 5 mg DAILY MARY Administration Aspirin 81 mg 06/01/24 09:00 06/03/24 08:40 Aspirin Ec 81 Mg Tablet PO 81 mg DAILY MARY Administration Atorvastatin Calcium 40 mg 05/31/24 21:00 06/02/24 20:28 Atorvastatin 40 Mg Tablet PO 40 mg QPM MARY Administration Clopidogrel Bisulfate 75 mg 06/01/24 09:00 06/03/24 08:40 Clopidogrel 75 Mg Tablet PO 75 mg DAILY MARY Administration Docusate Sodium 250 - 500 mg 06/02/24 09:00 06/03/24 08:40 Docusate Sodium 250 Mg Capsule PO 250 mg DAILY MARY Administration Enoxaparin Sodium 40 mg 06/01/24 09:00 06/03/24 08:39 Enoxaparin 40 Mg/0.4 Ml Syringe SUBQ 40 mg DAILY MARY Administration Furosemide 20 mg 06/02/24 09:00 06/03/24 08:40 Furosemide 20 Mg Tablet PO 20 mg DAILY MARY Administration Losartan Potassium 25 mg 06/03/24 10:00 06/03/24 12:21 Losartan 50 Mg Tablet PO Not Given DAILY MARY Metoprolol Succinate 25 mg 06/01/24 21:00 06/02/24 20:28 Metoprolol Succinate 25 Mg Tablet PO 25 mg HS MARY Administration Ondansetron HCl 4 mg 05/31/24 14:58 Ondansetron Odt 4 Mg Tablet TL Q6HR PRN Nausea / Vomiting Ondansetron HCl 4 mg 05/31/24 14:58 Ondansetron 4 Mg/2 Ml Vial IVP Q6HR PRN Nausea / Vomiting Polyethylene Glycol 17 gm 06/02/24 09:00 06/03/24 08:39 Polyethylene Glycol 3350 17 Gm Packet PO 17 gm DAILY MARY Administration Psyllium Hydrophilic Mucilloid 1 packet 06/03/24 18:31 Psyllium Packet PO DAILY PRN Constipation Sodium Chloride 10 ml 05/31/24 14:58 Sodium Chloride Flush 0.9% 10 Ml Syringe IVP PRN PRN NEEDED PER PROVIDER ORDERS Sodium Chloride 10 ml 05/31/24 17:00 06/03/24 17:29 Sodium Chloride Flush 0.9% 10 Ml Syringe IVP 10 ml 0100,0900,1700 MARY Administration Objective Vital Signs/Intake & Output Reviewed Vital Signs: Yes Vital Signs: Vital Signs x48h Temp Pulse Resp BP Pulse Ox 06/03/24 16:24 36.6 C 62 18 128/73 94 Intake & Output: Intake & Output 05/31/24 06/01/24 06/02/24 06/03/24 23:59 23:59 23:59 23:59 Intake Total 250 / 250 1460 / 1460 1240 / 1240 320 / 320 Output Total 1700 / 1700 975 / 975 1250 / 1250 Balance 250 / 250 -240 / -240 265 / 265 -930 / -930 Weight (kg) 108 kg Objective General Appearance: positive No acute distress and Alert Eyes Bilateral: positive Normal inspection and PERRL ENT: positive No signs of dehydration Neck: positive Nml inspection and No JVD Respiratory: positive Breath sounds nml Cardiovascular: positive Regular rate & rhythm Abdomen: positive Non-tender Skin: positive Color nml Extremities: positive Non-tender Neurologic/Psychiatric: positive Oriented x3; negative Motor nml (Weakness on left), Sensation nml (Impaired sensation on left) or Facial droop (Slight left- sided facial droop) Comments/Other: I obseved the patient today with a walker. he was able to get up, with great effort and take steps into the bathroom with a walker and staff assist. He is highly motivated towards rehab. Lab Results 06/03/24 05:27 06/03/24 05:27 Other Labs: Lab Results x24hrs 06/03/24 Range/Units 05:27 WBC 3.6 L (4.8-10.8) x10^3/uL RBC 4.75 (4.70-6.10) 10^6/uL Hgb 14.1 (14.0-18.0) g/dL Hct 42.2 (42.0-52.0) % MCV 88.8 (80.0-94.0) fL MCH 29.7 (27.0-31.0) pg MCHC 33.4 (32.0-36.0) g/dL RDW 13.1 (12.0-15.0) % Plt Count 174 (130-450) 10^3/uL MPV 11.0 (7.4-11.4) fL Neut # (Auto) 1.5 (1.5-6.6) 10^3/uL Lymph # (Auto) 1.5 (1.5-3.5) 10^3/uL [place] # (Auto) 0.5 (0.0-1.0) 10^3/uL Eos # (Auto) 0.1 (0.0-0.7) 10^3/uL Baso # (Auto) 0.1 (0.0-0.1) 10^3/uL Absolute Nucleated RBC 0.00 x10^3/uL Nucleated RBC % 0.0 /100WBC Sodium 134 L (135-145) mmol/L Potassium 3.5 (3.5-4.5) mmol/L Chloride 104 (101-111) mmol/L Carbon Dioxide 24 (21-32) mmol/L Anion Gap 6.0 (6-13) BUN 12 (6-20) mg/dL Creatinine 0.8 (0.6-1.3) mg/dL Estimated GFR (MDRD) 93 (>89) Glucose 98 (74-104) mg/dL Calcium 8.4 L (8.5-10.3) mg/dL Assessment/Plan Problem List (1) Cerebrovascular accident (CVA): Impression: Received loading doses of aspirin and Plavix in the ER Continue Plavix for 3 weeks Aspirin 81 mg daily Lipitor 40 mg p.o. daily MRI brain is negative. This is CVA is not evident on the MRI. Echocardiogram with negative bubble study, EF 60-65%, right sided funtion is normal, no evidence of valvular dysfunction PT/OT eval recommend IRF l Qualifiers: CVA mechanism: unspecified Qualified Code(s): I63.9 - Cerebral infarction, unspecified (2) HTN (hypertension): Impression: Outside of 24-hour window for permissive hypertension, his home meds have been restarted: metoprolol and lisinopril. I have then swapped the lisinopril for losartan due to cough. He is medically clear for dc to [facility]. I have spent 26 minutes in the care of this patient today. This includes time [id number], review and ordering of diagnostic imaging and laboratory studies.
[2024-06-04] MEDS: PSYLLIUM PACKET PO PRN (08:35)
[2024-06-04 09:36] VITALS: BP 104/63; TEMP 98.2; O2SAT 93
--- NOTE | 2024-06-04 12:46 | Discharge Summary ---
"Discharge Summary Admit Date: 05/31/24 Discharge Date: 06/04/24 Discharging Provider: Sonal Ivey PA-C Primary Care Provider: HAILEY Olvera Code Status: Attempt Resuscitation DIAGNOSES Discharge Diagnoses with Status of Each Condition: CVA, POA, MRI negative, on Plavix for 21 days, then continue 81mg ASA for life. Statin for life. HTN, POA, treated and controlled while here ADD, treated with Adderall XR 30mg at home, this has been held while admitted. basal cell carcinoma of skin, not active diagnosis. Prostate cancer, not an active diagnosis. HPI History of Present Illness: 79-year-old male PMH significant for hypertension who presented to the ED after experiencing left-sided weakness and numbness/tingling starting early this morning. In the ER, CT head, CTA head and neck was performed which showed A 3.2 cm left thyroid nodule, But no significant intracranial abnormality or any abnormality within the arteries of the neck. He was loaded with aspirin, Plavix and hospitalist was contacted for observation for suspected stroke CONSULTS | PROCEDURES Procedures: Head CT 05/31/2024: No acute intracranial pathology, no hemorrhagic infarct. CTA of the head and neck 05/31/2024 no significant intracranial abnormality no significant abnormality seen within the arteries in the neck. There is a 3.2 cm left thyroid nodule this will require nonemergent ultrasound in the outpatient environment. MRI of the brain 05/31/2024: No acute infarct no intracranial hematoma. HOSPITAL COURSE Hospital Course: This is a 79-year-old male with a past medical history of hypertension who was previously independently living at home with his spouse who presented to the emergency department with complaints of left-sided weakness which started overnight. Probably first noted around 3 AM and presented to the emergency department many hours later. He was admitted with a diagnosis of presumed stroke given his left-sided weakness and was loaded with aspirin Plavix. There were no abnormalities seen on the CT of the head or the CT a of the head neck aside from an incidentally found thyroid nodule. EKG at the time admission showed sinus rhythm with a rate of 69. Echocardiogram done later on the day of admission showed overall left ventricular systolic function which is normal with an ejection fraction of 60 to 65%, normal diastole for age, right ventricular size is normal, right ventricular systolic function is normal, contrast injection of agitated saline was negative for arterial shunt with and without Valsalva. There were no abnormalities noted on the valves. The aortic root was within normal limits. With regards to patient's past medical history. He has a history of ADD which was diagnosed when his adult son was diagnosed and is started to take 30 mg of Adderall XR daily at home. He denies elevated blood pressure with this medication he states he does monitor his blood pressure at home. With regards to the thyroid nodule which was incidentally found he does relate to me a history of being on thyroid medication when he was a very young child but none since that time. He is unclear of the indication for the thyroid medicine. He has not had thyroid function studies done while inpatient. As the patient was outside of window for permissive hypertension by the time he was admitted we have restarted his home medications of metoprolol succinate 25 mg at at bedtime. Lisinopril 10 mg was listed in his home medications however he states that this is given him a cough in the past. And this was swapped out to Cozaar 25 mg a day. Additionally we have restarted his Norvasc 5 mg a day. Please see a log of his blood pressures below. At home he is also on Lasix 20 mg a day and this was continued. POLST completed not until the day of discharge. Patient wants full code full care. His Radha would be his surrogate medical decision maker. Selected Entries 06/01/24 23:43 06/02/24 05:10 06/02/24 07:24 Pulse Rate [Brachial] 73 64 62 Pulse Rate [Sitting] Blood Pressure [Brachial artery] 143/85 H 140/86 H 133/86 H Blood Pressure [Sitting] 06/02/24 09:47 06/02/24 12:50 06/02/24 16:05 Pulse Rate [Brachial] 65 60 Pulse Rate [Sitting] 92 Blood Pressure [Brachial artery] 129/73 132/75 H Blood Pressure [Sitting] 147/90 H 06/02/24 20:26 06/03/24 00:05 06/03/24 05:28 Pulse Rate [Brachial] 63 63 65 Pulse Rate [Sitting] Blood Pressure [Brachial artery] 120/69 138/77 H 124/73 Blood Pressure [Sitting] 06/03/24 07:48 06/03/24 09:14 06/03/24 16:24 Pulse Rate [Brachial] 66 66 62 Pulse Rate [Sitting] Blood Pressure [Brachial artery] 124/74 104/53 L 128/73 Blood Pressure [Sitting] 06/03/24 21:05 06/04/24 00:20 06/04/24 09:36 Pulse Rate [Brachial] 65 67 72 Pulse Rate [Sitting] Blood Pressure [Brachial artery] 140/78 H 131/86 H 104/63 Blood Pressure [Sitting] ALLERGIES Allergies Allergy/AdvReac Type Severity Reaction Status Date / Time penicillin G Allergy Severe Hives Verified 04/14/24 13:15 MEDICATIONS Ambulatory Orders Medication Instructions Recorded Confirmed furosemide 20 mg tablet (Lasix) 20 mg PO DAILY 04/14/24 05/31/24 amlodipine 5 mg-benazepril 10 mg 1 cap PO DAILY 05/31/24 05/31/24 capsule dextroamphetamine-amphetamine ER 30 mg PO BID PRN ADHD 05/31/24 05/31/24 30 mg 24hr capsule,extend release metoprolol succinate 25 mg 25 mg PO HS 05/31/24 05/31/24 tablet,extended release 24 hr PHYSICAL EXAM AT DISCHARGE Physical Exam Other/Comments: General Appearance: positive No acute distress and Alert Eyes Bilateral: positive Normal inspection and PERRL ENT: positive No signs of dehydration Neck: positive Nml inspection and No JVD Respiratory: positive Breath sounds nml Cardiovascular: positive Regular rate & rhythm Abdomen: positive Non-tender Skin: positive Color nml Extremities: positive Non-tender Neurologic/Psychiatric: positive Oriented x3; negative Motor nml (Weakness on left), Sensation nml (Impaired sensation on left) or Facial droop (Slight left- sided facial droop) Comments/Other: I observed the patient today with a walker. he was able to get up, with great effort and take steps into the bathroom with a walker and my standby assist. He is highly motivated towards rehab. LABS 06/03/24 05:27 06/03/24 05:27 FOLLOW UP Follow Up: PCP HAILEY Tyson on dc from rehab. needs followup of thyroid nodule found incidentally on CTA head/neck. TIME SPENT Time Spent in Discharge (Minutes): 45 Discharge Plan Discharge Patient Disposition: 02 Transfer Acute Care Hosp Condition: Stable Prescriptions: New acetaminophen 325 mg Tablet 650 mg PO Q4HR PRN (Reason: Pain 1 to 4, or Fever) Qty: 30 0RF aspirin 81 mg Tablet,Delayed Release (Dr/Ec) 81 mg PO DAILY Qty: 30 0RF atorvastatin 40 mg Tablet 40 mg PO QPM Qty: 30 0RF clopidogrel 75 mg Tablet 75 mg PO DAILY Qty: 15 0RF docusate sodium 250 mg Capsule 250 - 500 mg PO DAILY Qty: 30 0RF polyethylene glycol 3350 17 gram Powder In Packet 17 g PO DAILY Qty: 30 0RF losartan 50 mg Tablet 25 mg PO DAILY Qty: 30 0RF Metamucil (with sugar) 3.4 gram Powder In Packet 2 tsp PO DAILY PRN (Reason: Constipation) Qty: 30 0RF Continued furosemide [Lasix] 20 mg tablet 20 mg PO DAILY metoprolol succinate 25 mg tablet extended release 24 hr 25 mg PO HS Held dextroamphetamine-amphetamine 30 mg capsule,extended release 24hr 30 mg PO BID PRN (Reason: ADHD) Hold Instructions: Resume on 07/02/24. resume at the discretion of inpatient rehab provider. Discontinued amlodipine-benazepril 5-10 mg capsule 1 cap PO DAILY Health Concerns: This is a 79-year-old male with a past medical history of hypertension who was previously independently living at home with his spouse who presented to the emergency department with complaints of left-sided weakness which started overnight. Probably first noted around 3 AM and presented to the emergency department many hours later. He was admitted with a diagnosis of presumed stroke given his left-sided weakness and was loaded with aspirin Plavix. There were no abnormalities seen on the CT of the head or the CT a of the head neck aside from an incidentally found thyroid nodule. EKG at the time admission showed sinus rhythm with a rate of 69. Echocardiogram done later on the day of admission showed overall left ventricular systolic function which is normal with an ejection fraction of 60 to 65%, normal diastole for age, right ventricular size is normal, right ventricular systolic function is normal, contrast injection of agitated saline was negative for arterial shunt with and without Valsalva. There were no abnormalities noted on the valves. The aortic root was within normal limits. With regards to patient's past medical history. He has a history of ADD which was diagnosed when his adult son was diagnosed and is started to take 30 mg of Adderall XR daily at home. He denies elevated blood pressure with this medication he states he does monitor his blood pressure at home. With regards to the thyroid nodule which was incidentally found he does relate to me a history of being on thyroid medication when he was a very young child but none since that time. He is unclear of the indication for the thyroid medicine. He has not had thyroid function studies done while inpatient. As the patient was outside of window for permissive hypertension by the time he was admitted we have restarted his home medications of metoprolol succinate 25 mg at at bedtime. Lisinopril 10 mg was listed in his home medications however he states that this is given him a cough in the past. And this was swapped out to Cozaar 25 mg a day. Additionally we have restarted his Norvasc 5 mg a day. Please see a log of his blood pressures below. At home he is also on Lasix 20 mg a day and this was continued. POLST completed not until the day of discharge. Patient wants full code full care. His Radha would be his surrogate medical decision maker. Care Plan Goals: return to independent level of function Print Language: Indonesian Follow-up Care: Pura Oshea ARNP, MSN [Provider Admit Priv/Credential] -"
== END 2024-06-04 14:30 | disposition short-term general hospital (02) | DRG 65 ==
LOC: ED 12:18 → MS2 12:18
PROVIDERS: ADMIT Nurse Practitioner Acute Care; ATTEND Nurse Practitioner Acute Care
DX: Z85.46 Personal history of malignant neoplasm of prostate; I63.9 Cerebral infarction, unspecified; Z85.828 Personal history of other malignant neoplasm of skin; R20.2 Paresthesia of skin; G81.94 Hemiplegia, unspecified affecting left nondominant side; R20.0 Anesthesia of skin; F98.8 Other specified behavioral and emotional disorders with onset usually occurring in childhood and adolescence; Z79.82 Long term (current) use of aspirin; R29.703 NIHSS score 3; R29.810 Facial weakness; Z79.899 Other long term (current) drug therapy; E04.1 Nontoxic single thyroid nodule; I10 Essential (primary) hypertension; R94.31 Abnormal electrocardiogram [ECG] [EKG]